=== PATIENT | female | born 1960 | race Caucasian/White ===

== ENCOUNTER 2016-10-16 09:36 | Emergency (ER) | payer BC ==
--- NOTE | ~2016-10-16 | ER ---
[facility] AGE[facility] 56 Y [address] ROOM: [place] [address] LOCATION: [facility] ADMIT DATE: 10/16/2016 ER/Outpatient Report DISCHARGE DATE: 10/16/2016 FAMILY PHYSICIAN: Madan Neves MD ATTENDING PHYSICIAN: Leena Lugo Time of Patient's Arrival: 0936 hours. Time of Patient's Evaluation: 0955 hours. CHIEF COMPLAINT: Injuries from fall. HISTORY OF PRESENT ILLNESS: This is a 56-year-old female who presents to the ER who states she suffered a ground-level fall yesterday around noon. She states she was walking and tripped on some uneven pavement, rolling her left ankle. She states she did fall down onto her knees and twisted on her back. She states she is having some left ankle pain, some left knee pain as well as low back pain. She does have a history of problems with her lower back and did have a surgery on her lower back 5 or 6 years ago. She does have numbness and tingling down her right leg normally, but it has intensified since the fall. The patient denies any other problems at this time and she did take an Aleve earlier for her pain and she states that she is not up-to-date on her tetanus shot. ALLERGIES: TRAMADOL. MEDICATIONS: Please see medication list in nurse's notes. PAST MEDICAL HISTORY: 1. Hypothyroidism. 2. Depression. PAST SURGICAL HISTORY: Degenerative disc disease L5-S1 with surgery to that area. She is post menopausal. She has had a gastric bypass, a , tonsil and adenoids, cholecystectomy, appendectomy, and abdominoplasty. SOCIAL HISTORY: Denies smoking, drug, or alcohol use. REVIEW OF SYSTEMS: All organ systems reviewed and are negative with exception of those discussed in the HPI. [facility] AGE: 56 Y [address] ROOM: [place] [address] LOCATION: [facility] ADMIT DATE: 10/16/2016 ER/Outpatient Report DISCHARGE DATE: 10/16/2016 FAMILY PHYSICIAN: Madan Neves MD ATTENDING PHYSICIAN: Leena Lugo PHYSICAL EXAMINATION: VITAL SIGNS: Weight 77.6 kg taken, blood pressure is 113/57, pulse 51, respirations 20, temperature 97.5 degrees tympanically, and saturations 100% on room air. [place] Coma Score is 15. GENERAL: Alert, calm, well-developed female, in mild distress. LUNGS: Clear to auscultation bilaterally. HEART: Regular rate and rhythm. EXTREMITIES: She does have swelling over her left ankle, over the left lateral malleolus. She does have some tenderness into her fifth metatarsal as well. She has some tenderness across her left knee, but does have fairly good range of motion of her knee. She states she has a previous fracture in her knee in the past. MUSCULOSKELETAL: She does have tenderness with palpation over her lumbar spine and some slight pain with palpation over the paraspinous muscles in her lumbar area. SKIN: She has a large abrasion noted to her right knee that she has bandaged up. There is no active drainage or bleeding from that area. LABORATORY DATA: None were done. IMAGING DATA: X-rays of the left ankle, left knee, and left foot showed no fracture. We will have Radiology over read. CT scan of her lumbar spine shows no acute abnormality. IMPRESSION: 1. Left ankle, left foot, and left knee injury from fall. 2. Acute on chronic low back pain. 3. Abrasion to right knee. ASSESSMENT AND PLAN: We did give the patient 2 [place] here in the emergency room for pain and we did update her on her tetanus shot as well. The patient states that she will continue to use her ankle brace that she brought as well as her crutches. I advised her to ice and elevate if any pain. Monitor symptoms and should follow up with her primary care physician if she does not improve. The patient understands and agrees with care. JOSE RAMON JEAN PA-C FOR LEENA LUGO MD PATIENT'S NAME: SABA HARRELL I [facility] AGE: 56 Y [address] ROOM: [place] [address] LOCATION: [facility] ADMIT DATE: 10/16/2016 ER/Outpatient Report DISCHARGE DATE: 10/16/2016 FAMILY PHYSICIAN: Madan Neves MD ATTENDING PHYSICIAN: Leena Lugo ACJ/modl /[id number] d: t: 10/20/16 1311, OUTPATIENT REPORT
== END 2016-10-16 11:15 | disposition disaster alternative care site (69) ==
LOC: GACC 09:36 → GMED 09:36 → GACC 11:15
DX: S80.211A Abrasion, right knee, initial encounter (principal); S99.912A Unspecified injury of left ankle, initial encounter; S99.922A Unspecified injury of left foot, initial encounter; M54.5 Low back pain; E03.9 Hypothyroidism, unspecified; F32.9 Major depressive disorder, single episode, unspecified; Z23 Encounter for immunization; Z90.49 Acquired absence of other specified parts of digestive tract; Z90.89 Acquired absence of other organs; Z98.890 Other specified postprocedural states; Z98.84 Bariatric surgery status; Z79.899 Other long term (current) drug therapy; Z88.8 Allergy status to other drugs, medicaments and biological substances; W18.30XA Fall on same level, unspecified, initial encounter; Y93.01 Activity, walking, marching and hiking